=== PATIENT | male | born 1955 | race Caucasian/White ===

== ENCOUNTER 2017-12-03 11:26 | Emergency (ER) | payer OTHER ==
[2017-12-03] MEDS: predniSONE 20 MG TAB PO (14:50)
[2017-12-03] MEDS: HYDROCODONE/APAP (5/325) TAB PO (14:50)
[2017-12-03] MEDS: KETOROLAC 60 MG INJ IM (14:51)
== END 2017-12-03 17:03 | disposition home or self-care (01) ==
LOC: FTE 11:26
DX: M51.36 Other intervertebral disc degeneration, lumbar region (principal); F17.210 Nicotine dependence, cigarettes, uncomplicated
CPT/HCPCS: 72131; 96372; 99285-25